=== PATIENT | male | born 1950 | race Caucasian/White ===

== ENCOUNTER 2016-10-29 17:30 | Outpatient (CLI) | payer MEDICARE | END 2016-10-29 17:31 | disposition home or self-care (01) | DX: M51.36 Other intervertebral disc degeneration, lumbar region (principal); M47.896 Other spondylosis, lumbar region; M51.37 Other intervertebral disc degeneration, lumbosacral region; M47.897 Other spondylosis, lumbosacral region ==

== ENCOUNTER 2019-04-14 11:31 | Outpatient (CLI) | payer MEDICARE ==
--- NOTE | 2019-04-14 15:23 | XRAY Report ---
Reason: KNEE PAIN Procedure Date: 04/14/2019 Accession Number: [id number] / [id number] Procedure: XRS - Knee 3 View LT CPT Code: FULL RESULT: EXAM: LEFT KNEE RADIOGRAPHY EXAM DATE: 04/14/2019 11:54 AM. CLINICAL HISTORY: Left knee pain. COMPARISON: None. TECHNIQUE: 3 views. FINDINGS: Bones: Normal. No fractures or bone lesions. Joints: Mild marginal spurring is seen in the joint compartments. Minimal joint space narrowing is suggested medially. Normal alignment. No effusion. Soft Tissues: Normal. No soft tissue swelling. 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 No fracture or malalignment. RADIA
== END 2019-04-14 11:32 | disposition home or self-care (01) ==
LOC: DI.S 11:31
PROVIDERS: ATTEND Family Medicine
DX: M17.12 Unilateral primary osteoarthritis, left knee (principal)

== ENCOUNTER 2019-04-25 13:51 | Outpatient (CLI) | payer MEDICARE ==
--- NOTE | 2019-04-26 18:06 | MRI Report ---
Reason: PAIN IN LEFT KNEE Procedure Date: 04/25/2019 Accession Number: [id number] / [id number] Procedure: MRI - Knee LT W/O CPT Code: FULL RESULT: EXAM: LEFT KNEE MRI WITHOUT CONTRAST EXAM DATE: 04/25/2019 02:33 PM. CLINICAL HISTORY: Knee pain. COMPARISON: KNEE 3 VIEW LT 04/14/2019 12:02 PM. TECHNIQUE: Multiplanar, multisequence T1-weighted and fluid-sensitive sequences of the knee without contrast. Other: None. FINDINGS: Bones: There are medial and patellofemoral compartment osteophytes. There is subchondral edema in the medial compartment.. Articular Cartilage: There is grade 3 and 4 chondral malacia of the medial compartment. There is grade 2 chondral malacia in the lateral and patellofemoral compartments. Medial Meniscus: There is a complex tear at the junction of the body and posterior horn. The body is extruded. There is a 4 x 10 x 17 mm medial parameniscal cyst. Lateral Meniscus: The lateral meniscus is intact. Cruciate Ligaments: There is mucoid degeneration of the ACL. There is increased T1 and T2 signal in the distal attachment of the PCL, suggestive of a partial-thickness tear. Collateral Ligaments: The collateral ligaments appear unremarkable. Tendons: There is ossification of the attachments of the patella and quadriceps tendon which may indicate prior tendinosis. Both tendons appear slightly thickened, with increased T1 and T2 signal in the proximal and distal patella tendon which may indicate low-grade tendinosis. Popliteus appears unremarkable. Musculature: No edema or fatty atrophy. Other: There is a moderate-sized joint effusion..No popliteal cyst. No loose bodies. The medial and lateral retinacula are intact. The subcutaneous tissues and fat pads are unremarkable. IMPRESSION: 1. There is moderate medial compartment osteoarthritis with extrusion of the meniscus. There is a complex tear of the body. There is a medial parameniscal cyst. 2. Mild lateral and patellofemoral compartment osteoarthritis. Moderate-sized joint effusion. 3. Mucoid degeneration of the ACL. Partial-thickness tear of the PCL. 4. Findings suggestive of low-grade patellar tendinosis. RADIA
== END 2019-04-25 13:52 | disposition home or self-care (01) ==
LOC: DI 13:51
PROVIDERS: ATTEND Family Medicine
DX: M17.12 Unilateral primary osteoarthritis, left knee (principal); M23.232 Derangement of other medial meniscus due to old tear or injury, left knee; M94.262 Chondromalacia, left knee; M25.862 Other specified joint disorders, left knee; M23.8X2 Other internal derangements of left knee

== ENCOUNTER 2022-06-12 11:41 | Outpatient (CLI) | payer MEDICARE ==
--- NOTE | 2022-06-12 14:29 | XRAY Report ---
PROCEDURE: Cervical Spine for View INDICATIONS: NECK PAIN TECHNIQUE: 4 view(s) of the cervical spine were acquired. COMPARISON: None. FINDINGS: Bones: No fractures or dislocations to the T1 level. The lateral masses of C1 appear intact on the odontoid view. No suspicious bony lesions. Moderate C5-C6 and C6-C7 degenerative disease. Mild C2-C 3, C3-C4, C4-C5 and C7-T1 degenerative disease. Mild facet hypertrophy throughout the cervical spine. Soft tissues: No prevertebral soft tissue swelling. IMPRESSION: 1. Multilevel degenerative disc disease. 2. Multilevel facet arthropathy. 3. No fracture. No acute osseous lesion. If there is continued clinical concern for pathology, then M RI should be considered for further evaluation. Reviewed by: Radha Rolle MD, PhD on 06/12/2022 2:28 PM PST Approved by: Radha Rolle MD, PhD on 06/12/2022 2:28 PM PST Station ID: [id number]
--- NOTE | 2022-06-12 14:30 | XRAY Report ---
PROCEDURE: Shoulder 3 View LT INDICATIONS: PAIN OF LEFT SHOULDER JOINT TECHNIQUE: 3 views of the shoulder were acquired. COMPARISON: None. FINDINGS: Bones: No fractures or dislocations. No suspicious bony lesions. Visualized ribs appear intact. Mi ld glenohumeral and acromioclavicular joint osteoarthritis. Soft tissues: No suspicious soft tissue calcifications. IMPRESSION: No fracture. No acute osseous lesion. If symptoms and/or clinical concern for pathology persists, further assessment with repeat plain film radiographs (7-10 days) or advanced imaging (CT, MR, bone scan) should be considered. Reviewed by: Radha Rolle MD, PhD on 06/12/2022 2:29 PM PST Approved by: Radha Rolle MD, PhD on 06/12/2022 2:29 PM PST Station ID: [id number]
== END 2022-06-12 11:42 | disposition home or self-care (01) ==
LOC: DI.S 11:41
PROVIDERS: ATTEND Nurse Practitioner Family
DX: M25.512 Pain in left shoulder (principal); M47.812 Spondylosis without myelopathy or radiculopathy, cervical region

== ENCOUNTER 2022-09-05 08:24 | Day surgery (SDC) | payer MEDICARE ==
[2022-09-05] MEDS ORDERED: LACTATED RINGERS 1,000 ML IV ONE (08:28)
--- NOTE | 2022-09-05 09:00 | ANESTHESIA ---
Pre-Anesthesia VS, & Labs - Diagnosis screening - Procedure colonoscopy Vital Signs: Temp Pulse Resp BP Pulse Ox O2 Flow Rate 36.2 C L 67 18 152/76 H 99 09/05/22 08:46 09/05/22 08:46 09/05/22 08:46 09/05/22 08:46 09/05/22 08:46 Height: 5 ft 11 in Weight (kg): 91 kg Body Mass Index: 27.9 BMI Classification: Overweight - NPO Other (prep as directed) Home Medications and Allergies Home Medications: Ambulatory Orders Acetaminophen [Tylenol] 500 mg PO DAILY 09/04/22 Calcium Carbonate [Calcium] 600 mg PO DAILY 09/04/22 Cholecalciferol (Vitamin D3) [D3-5000] 1 cap PO 5XD 09/04/22 Lisinopril [Zestril] 20 mg PO DAILY 09/04/22 Meloxicam, Submicronized [Meloxicam] 15 mg PO DAILY 09/04/22 Vit C/E/Zn/Coppr/Lutein/Zeaxan [Preservision Areds 2 Chew Tab] 1 tab PO DAILY 09/05/22 Acetaminophen [Tylenol] 500 mg PO DAILY 09/04/22 Calcium Carbonate [Calcium] 600 mg PO DAILY 09/04/22 Cholecalciferol (Vitamin D3) [D3-5000] 1 cap PO 5XD 09/04/22 Lisinopril [Zestril] 20 mg PO DAILY 09/04/22 Meloxicam, Submicronized [Meloxicam] 15 mg PO DAILY 09/04/22 Vit C/E/Zn/Coppr/Lutein/Zeaxan [Preservision Areds 2 Chew Tab] 1 tab PO DAILY 09/05/22 Allergies/Adverse Reactions: Allergies Allergy/AdvReac Type Severity Reaction Status Date / Time No Known Drug Allergies Allergy Verified 09/04/22 12:39 Anes History & Medical History - Anesthetic History Anesthesia Complications: reports: No previous complications - Medical History Cardiovascular: reports: Hypertension Pulmonary: reports: None Gastrointestinal: reports: GI bleed, Chronic diarrhea, Chronic constipation, Hemorrhoids, Other Urinary: reports: None Musculoskeletal: reports: Osteoarthritis Endocrine/Autoimmune: reports: None Skin: reports: Psoriasis Exam General: Alert, Oriented x3, Cooperative Mouth Opening: Greater than 4 Fingerbreadths Neck Mobility: Normal Mallampati classification: II Thyromental Distance: greater than 6 cm Respiratory: Lungs clear Cardiovascular: Regular rate Plan Anesthesia Type: Total IV Consent for Procedure(s) Verified and Reviewed: Yes Code Status: Attempt Resuscitation ASA classification: 2-Mild systemic disease Is this case an emergency?: No
[2022-09-05] MEDS ORDERED: PROPOFOL 500 MG/50 ML 500 MG/50 ML VIAL ONE (09:31)
[2022-09-05] MEDS ORDERED: LACTATED RINGERS 700 ML IV ONE (10:05)
--- NOTE | 2022-09-05 10:17 | ANESTHESIA POST OP EVALUATION ---
Anesthesia Post Eval - Post Anesthesia Eval Vitals: Last Vital Signs Temp 36.0 C L 09/05/22 10:15 Pulse 61 09/05/22 10:15 Resp 16 09/05/22 10:15 BP 100/53 L 09/05/22 10:15 Pulse Ox 96 09/05/22 10:15 O2 Flow Rate CV Function Including HR & BP: Stable Pain Control: Satisfactory Nausea & Vomiting: Negative Mental Status: Baseline Respiratory Status: Airway Patent Hydration Status: Satisfactory Anesthesia Complications: None
[2022-09-05 10:24] VITALS: BP 124/69
== END 2022-09-05 08:25 | disposition home or self-care (01) ==
LOC: SDS 08:24
PROVIDERS: ATTEND Surgery
PROC: 0DBK8ZZ Excision of Ascending Colon, Via Natural or Artificial Opening Endoscopic (ICD-10-PCS; principal; 2022-09-05 09:30)
DX: R19.4 Change in bowel habit (principal); R10.819 Abdominal tenderness, unspecified site; D12.2 Benign neoplasm of ascending colon; K57.30 Diverticulosis of large intestine without perforation or abscess without bleeding; K64.8 Other hemorrhoids; J44.9 Chronic obstructive pulmonary disease, unspecified; Z87.891 Personal history of nicotine dependence
CPT/HCPCS: 45380; J7120

== ENCOUNTER 2022-11-06 13:57 | Day surgery (SDC) | payer MEDICARE ==
[2022-11-06] MEDS ORDERED: PANTOPRAZOLE 40 MG VIAL IV STA (14:31)
[2022-11-06] MEDS ORDERED: SODIUM CHLORIDE 0.9% 1,000 ML IV STA ×2 (14:31→17:32)
[2022-11-06] MEDS ORDERED: MORPHINE 2 MG/ML CARPUJECT IVP STA (14:32)
[2022-11-06] MEDS ORDERED: ONDANSETRON 4 MG/2 ML VIAL IVP STA (14:32)
[2022-11-06 14:36] LABS: BASOPHILS % (AUTO) 0.2 %; HCT - HEMATOCRIT 28.6 % (42.0-52.0); HGB - HEMOGLOBIN 9.4 g/dL (14.0-18.0); LYMPHOCYTES # (AUTO) 1.9 10^3/uL (1.5-3.5); LYMPHOCYTES % (AUTO) 14.4 %; MEAN CORPUSCULAR HEMOGLOBIN 30.6 pg (27.0-31.0); MEAN CORPUSCULAR HGB CONC 32.9 g/dL (32.0-36.0); MEAN CORPUSCULAR VOLUME 93.2 fL (80.0-94.0); MEAN PLATELET VOLUME 8.6 fL (7.4-11.4); MONOCYTES # (AUTO) 0.7 10^3/uL (0.0-1.0); MONOCYTES % (AUTO) 5.4 %; NEUTROPHILS # (AUTO) 10.3 10^3/uL (1.5-6.6); NEUTROPHILS % (AUTO) 78.8 %; PLT - PLATELET COUNT 261 10^3/uL (130-450); RED BLOOD COUNT 3.07 10^6/uL (4.70-6.10); RED CELL DISTRIBUTION WIDTH 12.5 % (12.0-15.0); WHITE BLOOD COUNT 13.1 x10^3/uL (4.8-10.8)
[2022-11-06 14:47] LABS: INR 1.2 (0.8-1.2); PT - PROTHROMBIN TIME 13.3 secs (9.9-12.6)
--- NOTE | 2022-11-06 14:53 | ED Physician Documentation ---
PD HPI GI BLEED - Stated complaint Stated Complaint: Black Stool - Chief complaint Chief Complaint: Abd Pain - History obtained from History obtained from: Patient - Additional information Additional information: Patient is a 72-year-old male presenting for evaluation of dark tarry stools for the past 2 days. Patient reports noticing a black-colored stools with 2 episodes yesterday and 2 episodes today. He also had an episode of emesis today. He is unsure about the color as he reports having had coffee prior to it. He does use meloxicam daily for chronic neck pain. He is not on other blood thinners other than a baby aspirin. He recently had a colonoscopy at the beginning of September and there were a few tubular adenomas. The colonoscopy was done by Dr. Santiago. He denies a history of an upper endoscopy. He does use Tums for history of indigestion. He does not take anything else for acid suppression. He does report feeling dizzy and lightheaded this morning. He also reports generalized abdominal pain. Review of Systems Constitutional: denies: Fever Nose: denies: Congestion Cardiac: denies: Chest pain / pressure Respiratory: denies: Dyspnea GI: reports: Abdominal Pain, Nausea, Vomiting, Bloody / black stool : denies: Dysuria, Hematuria Neurologic: denies: Headache PD PAST MEDICAL HISTORY - Past Medical History Cardiovascular: Hypertension Respiratory: None Endocrine/Autoimmune: None GI: GI bleed, Chronic diarrhea, Chronic constipation, Hemorrhoids, Other : None HEENT: Chronic vision loss, Chronic hearing loss Psych: Post traumatic stress disorder Musculoskeletal: Osteoarthritis Derm: Psoriasis - Present Medications Home Medications: Ambulatory Orders Medication Instructions Recorded Confirmed Acetaminophen [Tylenol] 500 mg PO DAILY 09/04/22 09/04/22 Calcium Carbonate [Calcium] 600 mg PO DAILY 09/04/22 09/04/22 Cholecalciferol (Vitamin D3) 1 cap PO 5XD 09/04/22 09/04/22 [D3-5000] Lisinopril [Zestril] 20 mg PO DAILY 09/04/22 09/04/22 Meloxicam, Submicronized 15 mg PO DAILY 09/04/22 09/04/22 [Meloxicam] Vit C/E/Zn/Coppr/Lutein/Zeaxan 1 tab PO DAILY 09/05/22 09/05/22 [Preservision Areds 2 Chew Tab] - Allergies Allergies/Adverse Reactions: Allergies Allergy/AdvReac Type Severity Reaction Status Date / Time No Known Drug Allergies Allergy Verified 09/05/22 10:10 PD ED PE NORMAL - General General: Alert and oriented X 3, No acute distress, Well developed/nourished - HEENT HEENT: Atraumatic - Neck Neck: Supple, no meningeal sign - Cardiac Cardiac: RRR, No murmur - Respiratory Respiratory: No respiratory distress, Clear bilaterally - Abdomen Abdomen: Normal bowel sounds, Soft, Non distended, Other (Epigastric and lower abdominal tenderness to palpation) - Rectal Rectal: Other (Chaperoned by Adriana, normal external exam, black-colored stools on glove, no kenn blood) - Derm Derm: Warm and dry - Neuro Neuro: Normal speech Results - Vitals Vitals: Vital Signs - 24 hr 11/06/22 11/06/22 11/06/22 14:05 14:08 14:38 Temperature 36.3 C L 36.5 C Heart Rate 100 100 92 Respiratory 16 16 15 Rate Blood Pressure 141/85 H 141/85 H 142/82 H O2 Saturation 100 100 98 11/06/22 11/06/22 11/06/22 15:08 15:30 16:00 Temperature 36.5 C 36.5 C Heart Rate 85 85 86 Respiratory 17 18 16 Rate Blood Pressure 143/62 H 143/68 H 140/70 H O2 Saturation 98 99 100 11/06/22 11/06/22 11/06/22 17:00 17:30 18:00 Temperature 36.5 C 36.8 C Heart Rate 88 86 90 Respiratory 16 16 16 Rate Blood Pressure 150/66 H 154/67 H 154/68 H O2 Saturation 98 99 100 11/06/22 18:30 Temperature Heart Rate 86 Respiratory 16 Rate Blood Pressure 137/69 H O2 Saturation 94 Oxygen O2 Source Room air - EKG (time done) 1413 EKG releavant findings:: EKG personally interpreted by author of this note. Relevant findings are: Rate 96, NSR, no STEMI, QTc 430 - Labs Labs: Microbiology 11/06/22 14:30 Occult Blood - Final Stool Laboratory Tests 11/06/22 11/06/22 11/06/22 14:27 14:27 14:27 WBC 13.1 H RBC 3.07 L Hgb 9.4 L Hct 28.6 L MCV 93.2 MCH 30.6 MCHC 32.9 RDW 12.5 Plt Count 261 MPV 8.6 Neut # (Auto) 10.3 H Lymph # (Auto) 1.9 [place] # (Auto) 0.7 Eos # (Auto) 0.0 Baso # (Auto) 0.0 Absolute Nucleated RBC 0.00 Nucleated RBC % 0.0 PT 13.3 H INR 1.2 Sodium Potassium Chloride Carbon Dioxide Anion Gap BUN Creatinine Estimated GFR (MDRD) Glucose Calcium Total Bilirubin AST ALT Alkaline Phosphatase Total Protein Albumin Globulin Albumin/Globulin Ratio Lipase SARS-CoV-2 (PCR) Blood Type A POSITIVE Blood Type Recheck Antibody Screen NEGATIVE 11/06/22 11/06/22 11/06/22 14:27 14:58 17:38 WBC RBC Hgb Hct MCV MCH MCHC RDW Plt Count MPV Neut # (Auto) Lymph # (Auto) [place] # (Auto) Eos # (Auto) Baso # (Auto) Absolute Nucleated RBC Nucleated RBC % PT INR Sodium 138 Potassium 4.1 Chloride 104 Carbon Dioxide 25 Anion Gap 9.0 BUN 51 H Creatinine 0.8 Estimated GFR (MDRD) 95 Glucose 182 H Calcium 8.6 Total Bilirubin 0.6 AST 15 ALT 18 Alkaline Phosphatase 45 Total Protein 6.1 L Albumin 4.0 Globulin 2.1 Albumin/Globulin Ratio 1.9 Lipase 41 SARS-CoV-2 (PCR) NOT DETECTED Blood Type Blood Type Recheck A POSITIVE Antibody Screen PD Medical Decision Making - ED course Complexity details: reviewed results, re-evaluated patient, d/w patient, d/w family ED course: Patient is a 72-year-old male presenting for evaluation of 2 days of black tarry stools with 1 episode of coffee-ground emesis. He does use meloxicam and aspirin and has epigastric tenderness. He had a colonoscopy 2 months ago with polyps removed. He is initially slightly tachycardic at 100. Otherwise vital signs are stable. CBC, chemistry were obtained and reviewed along with coags. BUN is elevated at 51, hemoglobin at 9.4 with no prior for comparison. Patient is feeling better after IV fluids, IV morphine and IV Zofran. A CT angio of the abdomen and pelvis was obtained without any clear source for bleeding or signs of infection such as diverticulitis.Reviewed the case with his surgeon who has performed his recent colonoscopy unfortunately he is out of town.Consulted with on-call general surgeon Dr. Savage who has graciously seen the patient in the emergency department. Plan for endoscopy tomorrow. Patient has received Protonix. Maintenance fluids ordered. Patient counseled on treatment plan and will remain boarding in the emergency department overnight as there are no hospital beds available for admission. Patient will be signed out to oncoming provider at shift change.No further episodes of stools or emesis and since being in the emergency department. 170 - Discussed with Dr. Santiago. Dr. Santiago is out of town. He reviewed his colonoscopy report from September 05. There were internal hemorrhoids, diverticulosis.He does believe that the patient needs an upper endoscopy and unfortunately he is not available to assist with this. 1708 - D/W Dr. Paez ([place]). She also did not have any prior labs on the patient. Gives approval for patient to be admitted here or at another facility. 1719 - Reviewed the case with on-call general surgeon Dr. Savage. He will come in to evaluate the patient to see if he can scope him tonight or tomorrow. Departure - Departure Disposition: ED Place in Observation Clinical Impression: GI bleed Condition: Fair
[2022-11-06] MEDS ORDERED: iohexoL-300 100 ML VIAL ONE (15:02)
[2022-11-06 15:04] LABS: ALBUMIN/GLOBULIN RATIO 1.9 (1.0-2.2); BILIRUBIN,TOTAL 0.6 mg/dL (0.2-1.0); CALCIUM 8.6 mg/dL (8.5-10.3); CREATININE 0.8 mg/dL (0.6-1.2); POTASSIUM 4.1 mmol/L (3.5-5.0); TOTAL PROTEIN 6.1 g/dL (6.7-8.2)
[2022-11-06] MEDS ORDERED: iohexoL-300 100 ML VIAL IVP ONE (16:35)
--- NOTE | 2022-11-06 16:38 | CT Report ---
PROCEDURE: ANGIO ABDOMEN/PELVIS W INDICATIONS: GI bleed/pain CONTRAST: 100mL Omni 300 TECHNIQUE: After the administration of intravenous contrast, 2.5 mm thick sections acquired from the diaphragm t o the symphysis. 10 mm maximum-intensity projection (MIP) reformats were then acquired. For radiati on dose reduction, the following was used: automated exposure control, adjustment of mA and/or kV ac cording to patient size. COMPARISON: Ultrasound of aorta dated 12/07/2014 FINDINGS: Image quality: Excellent. Aorta: Normal contrast opacification of abdominal aorta is seen. No aortic aneurysm or dissection. M ild to moderate atherosclerotic calcifications are seen in the abdominal aorta and bilateral iliac ar teries. Mesenteric arteries: Celiac trunk, superior and inferior mesenteric arteries appear patent. Right pelvic arteries: Right common iliac artery, internal and external iliac arteries, right profun dus femoris artery and superficial femoral artery are well opacified and show no hemodynamically sign ificant stenosis or aneurysm. Left pelvic arteries: Left common iliac artery, internal and external iliac arteries, left profundus femoris artery and left superficial femoral artery are well opacified and show no hemodynamically si gnificant stenosis or aneurysm. Extravascular soft tissues: Lung bases are clear. Heart size is normal. Liver and spleen are rody l in size and enhancement. Gallbladder is within normal limits. Biliary system is non dilated. Carrillo creas enhances normally. No adrenal nodules. Kidneys are normal in size and enhancement, without hy dronephrosis. Right renal cysts are seen measures up to 3.9 x 3.9 cm in size. Non opacified bowel loo ps are normal in wall thickness and caliber. No free fluid or air. No retroperitoneal or mesenteric adenopathy. No ventral hernias. No suspicious bony lesions. No vertebral body compression fractur es. IMPRESSION: 1. No abdominal aortic aneurysm or dissection. No hemodynamically significant stenosis or aneurysm is seen in mesenteric arteries, bilateral renal arteries and bilateral pelvic arteries. 2. No acute inflammatory process is seen in abdomen or pelvis. No abnormal bowel wall thickening. No free fluid of free air. 3. Right renal cysts. No hydronephrosis or nephrolithiasis. Normal-appearing urinary bladder. Reviewed by: Kimani Ruffin MD on 11/06/2022 4:37 PM PDT Approved by: Kimani Ruffin MD on 11/06/2022 4:37 PM PDT Station ID: [id number]
--- NOTE | 2022-11-06 18:20 | CONSULTATION NOTE ---
Referring Provider Consult Date: 11/06/22 Chief Complaint - Chief Complaint Chief Complaint: black stool History of Present Illness - History Obtained From Records Reviewed: yes History obtained from: pt Exam Limitations: none - History of Present Illness HPI Comment/Other: he has been on meloxicam and aspirin for several years. long standing mild heart burn. he takes tums on occasion. no pain on swallowing, trouble s wallowing. he had looser stool for a few days followed by several dark stools the last few days. today he had a black stool and mild epigastric pain. recent colonoscopy a couple polyps removed. History - Past Medical History Cardiovascular: reports: Hypertension Respiratory: reports: None Endocrine/Autoimmune: reports: None GI: reports: GI bleed, Chronic diarrhea, Chronic constipation, Hemorrhoids, Other : reports: None HEENT: reports: Chronic vision loss, Chronic hearing loss Psych: reports: Post traumatic stress disorder Musculoskeletal: reports: Osteoarthritis Derm: reports: Psoriasis MRSA Hx?: No Meds/Allgy - Home Medications Home Medications: Ambulatory Orders Medication Instructions Recorded Confirmed Acetaminophen [Tylenol] 500 mg PO DAILY 09/04/22 09/04/22 Calcium Carbonate [Calcium] 600 mg PO DAILY 09/04/22 09/04/22 Cholecalciferol (Vitamin D3) 1 cap PO 5XD 09/04/22 09/04/22 [D3-5000] Lisinopril [Zestril] 20 mg PO DAILY 09/04/22 09/04/22 Meloxicam, Submicronized 15 mg PO DAILY 09/04/22 09/04/22 [Meloxicam] Vit C/E/Zn/Coppr/Lutein/Zeaxan 1 tab PO DAILY 09/05/22 09/05/22 [Preservision Areds 2 Chew Tab] - Allergies Allergies/Adverse Reactions: Allergies Allergy/AdvReac Type Severity Reaction Status Date / Time No Known Drug Allergies Allergy Verified 09/05/22 10:10 Review of Systems - Other Findings Other Findings: 10 pt ros as above otherwise unremarkable Exam - Vital Signs Reviewed Vital Signs: Yes Vital Signs: Vital Signs x48h Temp Pulse Resp BP Pulse Ox 11/06/22 18:00 90 16 154/68 H 100 11/06/22 17:30 36.8 C 86 16 154/67 H 99 11/06/22 17:00 36.5 C 88 16 150/66 H 98 11/06/22 16:00 36.5 C 86 16 140/70 H 100 11/06/22 15:30 85 18 143/68 H 99 11/06/22 15:08 36.5 C 85 17 143/62 H 98 11/06/22 14:38 92 15 142/82 H 98 11/06/22 14:08 36.5 C 100 16 141/85 H 100 11/06/22 14:05 36.3 C L 100 16 141/85 H 100 - Physical Exam General Appearance: positive: No acute distress, Alert Eyes Bilateral: positive: PERRL, EOMI, No scleral icterus ENT: positive: No signs of dehydration Neck: positive: No JVD, Trachea midline Respiratory: positive: No respiratory distress Cardiovascular: positive: Regular rate & rhythm Abdomen: positive: Non-tender, No distention Neurologic/Psychiatric: positive: Oriented x3 Conclusion/Plan - Problem List (1) GI bleed Conclusion/Plan: recommend observation, ppi, avoid nsads and aspirin, transfusion as needed. plan egd in am clears ok. npo after midnight. he denies nausea and emesis. no bm since this am. clinically he no longer is actively bleeding. - Lab Results Fish Bones: 11/06/22 14:27 11/06/22 14:27
[2022-11-06] MEDS ORDERED: ONDANSETRON 4 MG/2 ML VIAL IVP PRN (18:29)
[2022-11-07] MEDS ORDERED: HYDROmorphone 1 MG/ML CARPUJECT IVP STA (01:28)
[2022-11-07 05:36] LABS: BASOPHILS % (AUTO) 0.1 %; EOSINOPHILS % (AUTO) 0.1 %; HCT - HEMATOCRIT 20.7 % (42.0-52.0); LYMPHOCYTES # (AUTO) 1.9 10^3/uL (1.5-3.5); LYMPHOCYTES % (AUTO) 17.6 %; MEAN CORPUSCULAR HEMOGLOBIN 30.7 pg (27.0-31.0); MEAN CORPUSCULAR HGB CONC 32.4 g/dL (32.0-36.0); MEAN PLATELET VOLUME 8.8 fL (7.4-11.4); MONOCYTES # (AUTO) 0.7 10^3/uL (0.0-1.0); MONOCYTES % (AUTO) 6.2 %; NEUTROPHILS % (AUTO) 74.6 %; PLT - PLATELET COUNT 189 10^3/uL (130-450); RED BLOOD COUNT 2.18 10^6/uL (4.70-6.10); RED CELL DISTRIBUTION WIDTH 12.7 % (12.0-15.0); WHITE BLOOD COUNT 10.8 x10^3/uL (4.8-10.8)
[2022-11-07 05:49] LABS: CALCIUM 7.8 mg/dL (8.5-10.3); CREATININE 0.7 mg/dL (0.6-1.2); POTASSIUM 3.9 mmol/L (3.5-5.0)
[2022-11-07 06:03] LABS: HGB - HEMOGLOBIN 6.7 g/dL (14.0-18.0)
--- NOTE | 2022-11-07 07:34 | ANESTHESIA ---
Pre-Anesthesia VS, & Labs - Diagnosis GI bleed - Procedure EGD Vital Signs: Temp Pulse Resp BP Pulse Ox O2 Flow Rate 37.1 C 86 12 153/70 H 99 11/07/22 07:22 11/07/22 07:22 11/07/22 07:22 11/07/22 07:22 11/07/22 07:22 Height: 5 ft 11 in Weight (kg): 90.718 kg Body Mass Index: 27.8 BMI Classification: Overweight - NPO >8 hours - Lab Results Current Lab Results: Laboratory Tests 11/07/22 05:24: Sodium 139, Potassium 3.9, Chloride 108, Carbon Dioxide 24, Anion Gap 7.0, BUN 42 H, Creatinine 0.7, Estimated GFR (MDRD) 111, Glucose 163 H , Calcium 7.8 L 11/07/22 05:24: WBC 10.8, RBC 2.18 L, Hgb 6.7 L*, Hct 20.7 L, MCV 95.0 H, MCH 30.7, MCHC 32.4, RDW 12.7, Plt Count 189, MPV 8.8, Neut # (Auto) 8.0 H, Lymph # (Auto) 1.9, [place] # (Auto) 0.7, Eos # (Auto) 0.0, Baso # (Auto) 0.0, Absolute Nucleated RBC 0.00, Nucleated RBC % 0.0 11/06/22 14:58: Blood Type Recheck A POSITIVE 11/06/22 14:27: Sodium 138, Potassium 4.1, Chloride 104, Carbon Dioxide 25, Anion Gap 9.0, BUN 51 H, Creatinine 0.8, Estimated GFR (MDRD) 95, Glucose 182 H, Calcium 8.6, Total Bilirubin 0.6, AST 15, ALT 18, Alkaline Phosphatase 45, Total Protein 6.1 L, Albumin 4.0, Globulin 2.1, Albumin/Globulin Ratio 1.9, Lipase 41 11/06/22 14:27: PT 13.3 H, INR 1.2 11/06/22 14:27: WBC 13.1 H, RBC 3.07 L, Hgb 9.4 L, Hct 28.6 L, MCV 93.2, MCH 30.6, MCHC 32.9, RDW 12.5, Plt Count 261, MPV 8.6, Neut # (Auto) 10.3 H, Lymph # (Auto) 1.9, [place] # (Auto) 0.7, Eos # (Auto) 0.0, Baso # (Auto) 0.0, Absolute Nucleated RBC 0.00, Nucleated RBC % 0.0 11/06/22 14:27: Blood Type A POSITIVE, Antibody Screen NEGATIVE, Crossmatch IS Only See Detail Fish Bones: 11/07/22 05:24 11/07/22 05:24 Home Medications and Allergies Active Medications Ondansetron HCl (Ondansetron 4 Mg/2 Ml Vial) 4 mg IVP Q6HR PRN PRN Reason: Nausea / Vomiting Last Admin: 11/07/22 01:37 Dose: 4 mg Pantoprazole Sodium (Pantoprazole 40 Mg Vial) 40 mg IV BID BELIA Acetaminophen [Tylenol] 500 mg PO DAILY 09/04/22 Calcium Carbonate [Calcium] 600 mg PO DAILY 09/04/22 Cholecalciferol (Vitamin D3) [D3-5000] 1 cap PO 5XD 09/04/22 Lisinopril [Zestril] 20 mg PO DAILY 09/04/22 Meloxicam, Submicronized [Meloxicam] 15 mg PO DAILY 09/04/22 Vit C/E/Zn/Coppr/Lutein/Zeaxan [Preservision Areds 2 Chew Tab] 1 tab PO DAILY 09/05/22 Allergies/Adverse Reactions: Allergies Allergy/AdvReac Type Severity Reaction Status Date / Time No Known Drug Allergies Allergy Verified 09/05/22 10:10 Anes History & Medical History - Anesthetic History Anesthesia Complications: reports: No previous complications Family history of Anesthesia Complications: Denies Family history of Malignant Hyperthermia: Denies - Medical History Cardiovascular: reports: Hypertension Pulmonary: reports: None Gastrointestinal: reports: GI bleed, Chronic diarrhea, Chronic constipation, Hemorrhoids, Other Urinary: reports: None Musculoskeletal: reports: Osteoarthritis Endocrine/Autoimmune: reports: None Skin: reports: Psoriasis Exam General: Alert, Oriented x3, Cooperative, No acute distress Dental: WNL Mouth Openin Fingerbreadth Neck Mobility: Normal Mallampati classification: II Thyromental Distance: 4-6 cm Respiratory: Lungs clear Cardiovascular: Regular rate Plan Anesthesia Type: General, Total IV Consent for Procedure(s) Verified and Reviewed: Yes Code Status: Attempt Resuscitation ASA classification: 3-Severe systemic disease Is this case an emergency?: Yes
[2022-11-07] MEDS ORDERED: PROPOFOL 200 MG/20 ML VIAL IVP ONE (08:05)
[2022-11-07] MEDS ORDERED: LIDOCAINE-PF 2% 10 ML AMP SUBQ ONE (08:05)
[2022-11-07] MEDS ORDERED: ONDANSETRON 4 MG/2 ML VIAL IVP PRN (08:23)
--- NOTE | 2022-11-07 09:38 | OPERATIVE REPORT ---
Operative Report - General Procedure Date: 11/07/22 Planned Procedure: egd Pre-Op Diagnosis: upper gi bleed with melena Procedure Performed: egd with biopsies Post Op Diagnosis: small scattered erosions stomach and mild inflammation duodenum. no bleedi - Procedure Note Primary Surgeon: meliton london Anesthesia Technique: Local, MAC Pathology: antrum and distal esophagus biopsies Estimated Blood Loss (mL): 0 Drain/Tube Type: Other (none) Findings: no ulcers, cancer. normal appearing esophagus scant old blood in stomach
--- NOTE | 2022-11-07 11:20 | ANESTHESIA POST OP EVALUATION ---
Anesthesia Post Eval - Post Anesthesia Eval Vitals: Last Vital Signs Temp 36.9 C 11/07/22 11:15 Pulse 85 11/07/22 11:15 Resp 18 11/07/22 11:15 BP 132/47 H 11/07/22 11:15 Pulse Ox 100 11/07/22 11:15 O2 Flow Rate CV Function Including HR & BP: Stable Pain Control: Satisfactory Nausea & Vomiting: Negative Mental Status: Baseline Respiratory Status: Airway Patent Hydration Status: Satisfactory Anesthesia Complications: None
[2022-11-07] MEDS: PANTOPRAZOLE 40 MG VIAL IV SCH ×2 (11:23→20:28)
[2022-11-07] MEDS: PANTOPRAZOLE 40 MG TABLET PO SCH ×2 (11:27→20:27)
[2022-11-08 07:19] LABS: HCT - HEMATOCRIT 23.2 % (42.0-52.0); HGB - HEMOGLOBIN 7.6 g/dL (14.0-18.0); MEAN CORPUSCULAR HEMOGLOBIN 30.6 pg (27.0-31.0); MEAN CORPUSCULAR HGB CONC 32.8 g/dL (32.0-36.0); MEAN CORPUSCULAR VOLUME 93.5 fL (80.0-94.0); MEAN PLATELET VOLUME 8.8 fL (7.4-11.4); RED BLOOD COUNT 2.48 10^6/uL (4.70-6.10); RED CELL DISTRIBUTION WIDTH 13.3 % (12.0-15.0); WHITE BLOOD COUNT 7.5 x10^3/uL (4.8-10.8)
[2022-11-08] MEDS: PANTOPRAZOLE 40 MG VIAL IV SCH (07:51)
[2022-11-08] MEDS: PANTOPRAZOLE 40 MG TABLET PO SCH (07:55)
--- NOTE | 2022-11-08 09:05 | Discharge Plan ---
Discharge Plan Problem Reviewed?: Yes Disposition: Home, Self Care Condition: Good Prescriptions: Pantoprazole [Protonix] 40 mg PO BID 60 Days #120 tablet Diet: Regular Activity Restrictions: No Restrictions Shower Restrictions: No Driving Restrictions: No Health Concerns: recent upper intestinal bleeding Plan of Treatment: avoid nsaids for 2 months. avoid aspirin indefinitely take a strong antacid for 2 months and then as needed Assessment: much improved on antacids and after transfusion 2 units blood Additional Instructions or Follow Up instructions: call the surgery office as needed we will call you within a week with biopsy results [phone] No Smoking: If you smoke, Please STOP! Call for help. Follow-up with: Panfilo Cox MD [Primary Care Provider] -
[2022-11-08 09:06] VITALS: BP 139/53
--- NOTE | 2022-11-08 09:08 | DISCHARGE SUMMARY ---
"Discharge Summary Admit Date: 11/06/22 Discharge Date: 11/08/22 Discharging Provider: meliton london Code Status: Attempt Resuscitation Discharge Facility Name: [facility] - DIAGNOSES Admission Diagnoses: upper gi bleed with melena and acute anemia Discharge Diagnoses with Status of Each Condition: home in good condition on protonix and after 2 units blood - HPI History of Present Illness: few days of melena prior to admission - CONSULTS | PROCEDURES Procedures: EGD/ upper endoscopy with biopsies. findings inflammation stomach and duodenum. many small erosions. no ulcers or cancer. - HOSPITAL COURSE Hospital Course: as above. doing well after 2 untis blood and on protonix. - ALLERGIES Allergies/Adverse Reactions: Allergies Allergy/AdvReac Type Severity Reaction Status Date / Time No Known Drug Allergies Allergy Verified 09/05/22 10:10 - MEDICATIONS Home Medications: Ambulatory Orders Medication Instructions Recorded Confirmed Acetaminophen [Tylenol] 500 mg PO DAILY 09/04/22 09/04/22 Calcium Carbonate [Calcium] 600 mg PO DAILY 09/04/22 09/04/22 Cholecalciferol (Vitamin D3) 1 cap PO 5XD 09/04/22 09/04/22 [D3-5000] Lisinopril [Zestril] 20 mg PO DAILY 09/04/22 09/04/22 Meloxicam, Submicronized 15 mg PO DAILY 09/04/22 09/04/22 [Meloxicam] Vit C/E/Zn/Coppr/Lutein/Zeaxan 1 tab PO DAILY 09/05/22 09/05/22 [Preservision Areds 2 Chew Tab] Pantoprazole [Protonix] 40 mg PO BID 60 Days #120 tablet 11/07/22 - PHYSICAL EXAM AT DISCHARGE General Appearance: positive: No acute distress, Alert Eyes Bilateral: positive: PERRL, EOMI ENT: positive: No signs of dehydration Neck: positive: No JVD, Trachea midline Respiratory: positive: No respiratory distress Abdomen: positive: No distention Neurologic/Psychiatric: positive: Oriented x3 - LABS Result Diagrams: 11/08/22 07:06 11/07/22 05:24 - QUALITY (Female Hip Fx Only) Was patient sent home on osteoporosis medication?: No - FOLLOW UP Follow Up: surgery as needed [phone]"
== END 2022-11-08 10:19 | disposition home or self-care (01) ==
LOC: ED 13:57 → SDS 11-07 07:38 → MS3 11-07 08:33 → SDS 11-08 10:19
PROVIDERS: ATTEND Surgery
PROC: 0DB68ZX Excision of Stomach, Via Natural or Artificial Opening Endoscopic, Diagnostic (ICD-10-PCS; 2022-11-07)
PROC: 0DB58ZX Excision of Esophagus, Via Natural or Artificial Opening Endoscopic, Diagnostic (ICD-10-PCS; principal; 2022-11-07 07:30)
DX: K29.80 Duodenitis without bleeding (principal); K20.90 Esophagitis, unspecified without bleeding; K29.50 Unspecified chronic gastritis without bleeding; K59.09 Other constipation; I10 Essential (primary) hypertension; Z20.822 Contact with and (suspected) exposure to COVID-19
CPT/HCPCS: 36415; 43239; 74174; 80048; 80053; 82272; 83690; 85025; 85027; 85610; 86850; 86900; 86901; 86920; 87635; 93005; 96374; 96375; 96376; 99285; A9270; J1170; P9016; Q9967

== ENCOUNTER 2023-07-11 16:45 | Outpatient (CLI) | payer MEDICARE ==
--- NOTE | 2023-07-11 20:01 | XRAY Report ---
PROCEDURE: Knee 3V LT INDICATIONS: PAIN OF LEFT KNEE JOINT TECHNIQUE: 3 views of the knee(s) were acquired. COMPARISON: Left knee radiograph on April 14, 2019. FINDINGS: Bones: No fractures or dislocations. Severe medial and mild to moderate lateral patellofemoral alma rtment joint space narrowing and juxta-articular osteophytosis. There is [id number] in the medial c ompartment with subchondral sclerosis of the tibial component. No suspicious bony lesions. Soft tissues: Tiny suprapatellar knee joint effusion. No suspicious soft tissue calcifications or ma sses. Vascular calcifications. IMPRESSION: 1.No acute bony abnormality. 2.Tricompartmental osteoarthritis, severe in the medial compartment with ookc-[id number] which has progr essed compared to April 14, 2019. Reviewed by: Jaylin Lew MD on 07/11/2023 7:59 PM PST Approved by: Jaylin Lew MD on 07/11/2023 7:59 PM PST Station ID: [id number]
== END 2023-07-11 16:46 | disposition home or self-care (01) ==
LOC: DI.S 16:45
PROVIDERS: ATTEND Nurse Practitioner Family
DX: M17.12 Unilateral primary osteoarthritis, left knee (principal)

== ENCOUNTER 2023-10-15 09:00 | Outpatient (CLI) | payer MEDICARE ==
--- NOTE | 2023-10-15 13:09 | XRAY Report ---
PROCEDURE: Knee 2 View LT INDICATIONS: LEFT KNEE PAIN, BILAT AP LEFT PA TUNNEL VIEWS TECHNIQUE: 2 views of the knee(s) were acquired. COMPARISON: 07/11/2023 FINDINGS: Bones: No fractures or dislocations. Tricompartmental osteoarthritic changes with severe medial comp artment joint space narrowing bilaterally. No suspicious bony lesions. Soft tissues: No suspicious soft tissue calcifications or masses. IMPRESSION: No acute bony abnormality. Tricompartmental osteoarthritic changes with severe medial compartment gonzalo nt space narrowing bilaterally. Reviewed by: Yannick Shipley MD on 10/15/2023 1:08 PM PDT Approved by: Yannick Shipley MD on 10/15/2023 1:08 PM PDT Station ID: [id number]
== END 2023-10-15 23:59 | disposition home or self-care (01) ==
LOC: DI.WOS 09:00
PROVIDERS: ATTEND Physician Assistant Surgical
DX: M17.12 Unilateral primary osteoarthritis, left knee (principal)

== ENCOUNTER 2023-12-06 08:33 | Outpatient (CLI) | payer MEDICARE | END 2023-12-06 08:34 | disposition home or self-care (01) | LOC: LAB.S 08:33 | PROVIDERS: ATTEND Urology | DX: N52.9 Male erectile dysfunction, unspecified (principal) | CPT/HCPCS: 36415; 84403 ==

== ENCOUNTER 2023-12-24 08:27 | Outpatient (CLI) | payer MEDICARE ==
[2023-12-24 15:56] LABS: THYROID STIMULATING HORMONE 1.15 uIU/mL (0.34-5.60)
[2023-12-24 16:02] LABS: PROLACTIN 4.78 ng/mL
== END 2023-12-24 08:28 | disposition home or self-care (01) ==
LOC: LAB.S 08:27
PROVIDERS: ATTEND Urology
DX: E29.1 Testicular hypofunction (principal)
CPT/HCPCS: 36415; 82670; 83002; 84146; 84403; 84443

== ENCOUNTER 2024-02-20 09:09 | Outpatient (CLI) | payer MEDICARE ==
--- NOTE | 2024-02-20 17:26 | MRI Report ---
Knee LT WO CLINICAL INFORMATION: 74 years of age, Male, L KNEE PAIN. COMPARISON: Prior MRI on 04/25/2019 Technique: Multisequence, multiplanar MRI of the left knee was performed without intravenous contrast . FINDINGS: Menisci: Medial meniscus: The posterior root of the medial meniscus is not well visualized. The posterior horn of the medial meniscus is extremely diminutive, likely secondary to complex tear. There is near mace ration of the meniscus body, with mild extrusion of the residual medial meniscus body. Lateral meniscus: The posterior root of the lateral meniscus is also not well visualized. There is sm all radial tear of the posterior horn of the lateral meniscus. No extrusion of the lateral meniscus b luis alberto. Cruciate ligaments: Severe mucoid degeneration of the ACL. The PCL is unremarkable. MCL/LCL: The MCL is unremarkable. The biceps femoris tendon is unremarkable. The fibular collateral ligament is unremarkable. The iliotibial band is intact. The popliteus muscle and tendon also appear intact. Extensor mechanism: The quadricep tendon is unremarkable. The patella tendon is unremarkable. Patellofemoral joint: Alignment within the patellofemoral joint is normal. The patellofemoral ligame nts are intact. High-grade chondral irregularity in the median ridge of the patella. Full-thickness c hondral fissure in the lateral patellar facet with mild subchondral marrow edema. High-grade chondral thinning in the central trochlea. Cartilage and bone: In the medial compartment, there is complete chondral denudation in the femoral c ondyle and the tibial plateau, with multifocal mild subchondral marrow edema. There is osteophytosis of the posterior aspect of the tibial plateau. In the lateral compartment, the cartilage is well-main tained. No acute fracture. Small distal quadricep enthesophyte. Subchondral cystic changes at the femoral condyle at the inserti on of the ACL, favoring reactive. Miscellaneous: Small knee effusion. No popliteal cyst. No intra-articular bodies are identified. Norm al muscle signal intensity and morphology. No vascular anomaly. IMPRESSION: 1.Extensive tear of the medial meniscus. 2.Small radial tear of the lateral meniscus posterior horn. 3.Severe mucoid degeneration of the ACL. 4.Severe, medial compartment predominant chondrosis, with progressed multifocal mild subchondral debbie ow edema. Reviewed by: Vielka Albarado MD on 02/20/2024 5:24 PM PDT Approved by: Vielka Albarado MD on 02/20/2024 5:24 PM PDT Station ID: [id number]
== END 2024-02-20 09:10 | disposition home or self-care (01) ==
LOC: DI 09:09
PROVIDERS: ATTEND Nurse Practitioner Family
DX: S83.242A Other tear of medial meniscus, current injury, left knee, initial encounter (principal); S83.282A Other tear of lateral meniscus, current injury, left knee, initial encounter; M23.8X2 Other internal derangements of left knee; M11.262 Other chondrocalcinosis, left knee; R93.6 Abnormal findings on diagnostic imaging of limbs